=== PATIENT | female | born 1980 | race Caucasian/White ===

== ENCOUNTER 2017-08-17 10:13 | Inpatient (IN) | payer MEDICAID ==
[~2017-08-17] VITALS: Ht 172.7 cm; Wt 48.5 kg
[2017-08-17] VITALS (217 sets, daily range): BP systolic 107–125; BP diastolic 70–73; PULSE 77–79; TEMP 97.4–99.2; O2SAT 79–100
[~2017-08-17 10:13] MED LIST: ALAVERT10 M1 PO; BACTRIM DS 8001 TAB PO; CHEWABLE-V1 TAB.CHEW PO; COLACE 100100 MG/CAP PO; COLACE1 SUP RC; COLACE100 MG PO; COLD & FLU; DOCUSATE CALCI100 MG PO; FLONASE NASAL S16 GM NS; FLONASEALLERGY NS; FLUCONAZOLE; LEVOXYL0.025 MG PO; LIPITOR 10MG10 MG PO; LORATADINE10 MG PO; LORTAB 5/500 501 TAB PO; MULTIPLE VITAMI1 CT1 PO; NIACIN1000 MG PO; NORCO 325 MG-51 TAB PO; PEPCID 20MG TAB20 MG PO; REGLAN 10MG10 MG/TAB PO; SALINE MIST 4545 ML NS; SALINE NASAL SP45 ML NS; SALINE NASAL SPRAY; SENNA PLUS 50 M1 TAB PO; SENNA-GEN8.6 MG PO; SENNA8.6 MG PO; TIZANIDINE HCL4 MG PO; ULTRACET 325 MG1 TAB PO; UNABLE; VIT; VITAMIN C500 MG PO; VTAMINC250TA; ZANAFLEX 4MG TAB4 MG PO; ZANAFLEX CAPSULE4 MG PO; ZANAFLEX4 M1 PO; ZANAFLEX6 MG PO; ZOLOFT 100MG100 MG PO; ZOLOFT100 MG PO; [UNRECOGNIZED DRUG - OTHER]; [UNRECOGNIZED DRUG - OTHER]; [UNRECOGNIZED DRUG - OTHER]; [UNRECOGNIZED DRUG - OTHER]; [UNRECOGNIZED DRUG - OTHER] PO
[2017-08-17 11:25] LABS: BASO # 0.1 (0.0-0.2); BASO % 0.5 % (0.0-2.0); EOS # 0.4 (0.0-0.7); EOS % 2.3 % (0-4.0); GRAN # 13.1 (1.4-6.5); GRAN % 76.2 % (42.2-75.2); HEMATOCRIT 47.8 % (37.0-47.0); HEMOGLOBIN 14.8 g/dl (12.5-16.0); LYMPH # 2.7 (1.2-3.4); LYMPH % 15.8 % (20.0-51.0); MEAN CELL VOLUME 103 fl (80.0-100.0); MEAN CORPUSCULAR HEMOGLOBIN 32 pg (27.0-31.0); MEAN CORPUSCULAR HGB CONC 31 g/dl (33.0-37.0); MEAN PLATELET VOLUME 14.2 fl (7.4-10.4); MONO # 0.7 (0.1-0.6); MONO % 4.3 % (1.7-9.3); PLATELET COUNT 92 K/mm3 (130-400); RED BLOOD COUNT 4.65 M/mm3 (4.10-5.30); REDCELL DISTRIBUTION WIDTH-CV 15.1 % (11.5-14.5)
[2017-08-17 11:37] LABS: ALBUMIN 3.6 gm/dL (3.5-5.0); BILIRUBIN,TOTAL 0.6 mg/dL (0.0-1.0); C-REACTIVE PROTEIN 1.5 mg/dL (0.0-0.9); CALCIUM 9.3 mg/dL (8.4-10.2); CREATININE, serum 0.79 mg/dL (0.52-1.25); PHOSPHOROUS 2.7 mg/dL (2.5-4.5)
[2017-08-17 12:25] LABS: COLLECTION METHOD CATHETER
[2017-08-17 12:31] LABS: PH 5 (5-8); URINE APPEARANCE Clear; URINE BILIRUBIN Negative (NEGATIVE); URINE BLOOD Negative (NEGATIVE); URINE COLOR Amber; URINE GLUCOSE Negative (NEGATIVE); URINE KETONE Negative (NEGATIVE); URINE LEUKOCYTE ESTERASE 1+ (NEGATIVE); URINE NITRATE Positive (NEGATIVE); URINE PROTEIN(semi-quant) Negative (NEGATIVE)
[2017-08-17 12:41] LABS: MUCOUS Present /lpf; SQUAMOUS EPITHELIAL 0-2 /hpf; URINE BACTERIA Moderate /hpf; URINE RBC 0-2 /hpf
[2017-08-17] MEDS ORDERED: NYSTATIN OR100 MU/ML PO (13:08)
[2017-08-17] MEDS ORDERED: DIFLUCAN 100MG100 MG PO (13:09)
[2017-08-17] MEDS ORDERED: PRILOSEC 20MG20 MG PO (14:56)
[2017-08-17 15:32] LABS: CALCIUM 9.2 mg/dL (8.4-10.2); CREATININE, serum 0.85 mg/dL (0.52-1.25)
[2017-08-17 15:43] LABS: POTASSIUM 2.9 mmol/L (3.4-5.0)
[2017-08-17 16:03] LABS: TSH w REFLEX 0.669 uIU/mL (0.465-4.680)
[2017-08-17 21:30] LABS: CALCIUM 8.6 mg/dL (8.4-10.2); CREATININE, serum 0.7 mg/dL (0.52-1.25)
[2017-08-17 21:32] LABS: POTASSIUM 2.9 mmol/L (3.4-5.0)
[2017-08-18] VITALS (520 sets, daily range): BP systolic 86–119; BP diastolic 52–81; PULSE 64–77; TEMP 97–100.5; O2SAT 89–100
[2017-08-18 00:35] LABS: CALCIUM 8.4 mg/dL (8.4-10.2); CREATININE, serum 0.74 mg/dL (0.52-1.25)
[2017-08-18 00:38] LABS: POTASSIUM 2.8 mmol/L (3.4-5.0)
[2017-08-18 04:27] LABS: CALCIUM 8.3 mg/dL (8.4-10.2); CREATININE, serum 0.72 mg/dL (0.52-1.25); POTASSIUM 3.2 mmol/L (3.4-5.0)
[2017-08-18 08:12] LABS: BASO # 0.1 (0.0-0.2); BASO % 0.5 % (0.0-2.0); EOS # 0.5 (0.0-0.7); EOS % 3.3 % (0-4.0); GRAN # 10.5 (1.4-6.5); HEMATOCRIT 42.7 % (37.0-47.0); HEMOGLOBIN 13.1 g/dl (12.5-16.0); LYMPH # 2.8 (1.2-3.4); LYMPH % 18.7 % (20.0-51.0); MEAN CELL VOLUME 103 fl (80.0-100.0); MEAN CORPUSCULAR HEMOGLOBIN 32 pg (27.0-31.0); MEAN CORPUSCULAR HGB CONC 31 g/dl (33.0-37.0); MONO # 0.9 (0.1-0.6); PLATELET COUNT 76 K/mm3 (130-400); RED BLOOD COUNT 4.16 M/mm3 (4.10-5.30); REDCELL DISTRIBUTION WIDTH-CV 14.9 % (11.5-14.5)
[2017-08-18 08:45] LABS: CALCIUM 8.1 mg/dL (8.4-10.2); CREATININE, serum 0.7 mg/dL (0.52-1.25)
[2017-08-18 12:50] LABS: CALCIUM 7.1 mg/dL (8.4-10.2); CREATININE, serum 0.64 mg/dL (0.52-1.25)
[2017-08-18 13:00] LABS: POTASSIUM 2.7 mmol/L (3.4-5.0)
[2017-08-18 14:18] LABS: CALCIUM 7.8 mg/dL (8.4-10.2); CREATININE, serum 0.69 mg/dL (0.52-1.25)
[2017-08-18 16:23] LABS: CALCIUM 7.7 mg/dL (8.4-10.2); CREATININE, serum 0.68 mg/dL (0.52-1.25)
[2017-08-18 16:25] LABS: POTASSIUM 2.9 mmol/L (3.4-5.0)
[2017-08-18 20:10] LABS: CALCIUM 7.5 mg/dL (8.4-10.2); CREATININE, serum 0.67 mg/dL (0.52-1.25); POTASSIUM 3.6 mmol/L (3.4-5.0)
[2017-08-19] VITALS (9 sets, daily range): BP systolic 90–131; BP diastolic 51–80; PULSE 54–86; TEMP 98–98.5; O2SAT 88–95
[2017-08-19 03:54] LABS: BASO % 0.4 % (0.0-2.0); EOS # 0.3 (0.0-0.7); EOS % 2.7 % (0-4.0); GRAN # 7.3 (1.4-6.5); GRAN % 65.5 % (42.2-75.2); LYMPH # 2.8 (1.2-3.4); LYMPH % 24.9 % (20.0-51.0); MEAN CELL VOLUME 104 fl (80.0-100.0); MEAN CORPUSCULAR HGB CONC 31 g/dl (33.0-37.0); MEAN PLATELET VOLUME 14.4 fl (7.4-10.4); MONO # 0.6 (0.1-0.6); MONO % 5.7 % (1.7-9.3); PLATELET COUNT 58 K/mm3 (130-400); RED BLOOD COUNT 3.38 M/mm3 (4.10-5.30); REDCELL DISTRIBUTION WIDTH-CV 14.7 % (11.5-14.5)
[2017-08-19 04:05] LABS: CALCIUM 7.6 mg/dL (8.4-10.2); CREATININE, serum 0.68 mg/dL (0.52-1.25); POTASSIUM 3.4 mmol/L (3.4-5.0)
[2017-08-19 04:12] LABS: HEMOGLOBIN 10.8 g/dl (12.5-16.0); MEAN CORPUSCULAR HEMOGLOBIN 32 pg (27.0-31.0)
[2017-08-19 08:28] LABS: CALCIUM 7.8 mg/dL (8.4-10.2); CREATININE, serum 0.64 mg/dL (0.52-1.25); POTASSIUM 3.6 mmol/L (3.4-5.0)
[2017-08-19 12:45] LABS: CALCIUM 7.8 mg/dL (8.4-10.2); CREATININE, serum 0.66 mg/dL (0.52-1.25); POTASSIUM 3.4 mmol/L (3.4-5.0)
[2017-08-19 18:24] LABS: CALCIUM 7.2 mg/dL (8.4-10.2); CREATININE, serum 0.58 mg/dL (0.52-1.25); POTASSIUM 4.7 mmol/L (3.4-5.0)
[2017-08-19 23:39] LABS: CALCIUM 7.7 mg/dL (8.4-10.2); CREATININE, serum 0.61 mg/dL (0.52-1.25); POTASSIUM 3.4 mmol/L (3.4-5.0)
[2017-08-20 04:24] VITALS: BP 98/57; PULSE 74; TEMP 98.6
[2017-08-20 07:52] LABS: BASO % 0.2 % (0.0-2.0); EOS # 0.3 (0.0-0.7); EOS % 2.4 % (0-4.0); GRAN # 8.9 (1.4-6.5); GRAN % 70.2 % (42.2-75.2); LYMPH # 2.7 (1.2-3.4); LYMPH % 21.2 % (20.0-51.0); MEAN CELL VOLUME 103 fl (80.0-100.0); MEAN CORPUSCULAR HGB CONC 31 g/dl (33.0-37.0); MONO # 0.6 (0.1-0.6); PLATELET COUNT 62 K/mm3 (130-400); RED BLOOD COUNT 3.26 M/mm3 (4.10-5.30); REDCELL DISTRIBUTION WIDTH-CV 14.5 % (11.5-14.5)
[2017-08-20 07:56] LABS: HEMATOCRIT 33.5 % (37.0-47.0); HEMOGLOBIN 10.3 g/dl (12.5-16.0); MEAN CORPUSCULAR HEMOGLOBIN 32 pg (27.0-31.0)
[2017-08-20 08:04] LABS: CALCIUM 7.9 mg/dL (8.4-10.2); CREATININE, serum 0.57 mg/dL (0.52-1.25); POTASSIUM 3.2 mmol/L (3.4-5.0)
[2017-08-20 08:35] VITALS: BP 112/63; BP 1120/63; PULSE 82; TEMP 968.1; TEMP 98.1
[2017-08-20 12:00] VITALS: BP 114/58; PULSE 74; TEMP 98.3
[2017-08-20 13:21] LABS: CALCIUM 7.9 mg/dL (8.4-10.2); CREATININE, serum 0.59 mg/dL (0.52-1.25); POTASSIUM 3.2 mmol/L (3.4-5.0)
[2017-08-20 15:07] VITALS: BP 104/52; PULSE 71; TEMP 98.1
[2017-08-20 19:21] LABS: CALCIUM 7.6 mg/dL (8.4-10.2); CREATININE, serum 0.56 mg/dL (0.52-1.25); POTASSIUM 3.5 mmol/L (3.4-5.0)
[2017-08-20 20:42] VITALS: BP 117/64; PULSE 85; TEMP 98.3
[2017-08-20 23:21] VITALS: BP 104/43; PULSE 69; TEMP 97.3
[2017-08-21 01:45] LABS: CALCIUM 7.5 mg/dL (8.4-10.2); CREATININE, serum 0.52 mg/dL (0.52-1.25); POTASSIUM 3.9 mmol/L (3.4-5.0)
[2017-08-21 03:50] VITALS: BP 102/53; PULSE 69; TEMP 97.9
[2017-08-21 06:31] LABS: MEAN CELL VOLUME 101 fl (80.0-100.0); MEAN CORPUSCULAR HGB CONC 31 g/dl (33.0-37.0); MEAN PLATELET VOLUME 14.2 fl (7.4-10.4); RED BLOOD COUNT 3.15 M/mm3 (4.10-5.30); REDCELL DISTRIBUTION WIDTH-CV 14.1 % (11.5-14.5)
[2017-08-21 06:38] LABS: MAGNESIUM 2.2 mg/dL (1.6-2.3); PHOSPHOROUS 1.2 mg/dL (2.5-4.5)
[2017-08-21 06:44] LABS: HEMATOCRIT 31.7 % (37.0-47.0); HEMOGLOBIN 9.9 g/dl (12.5-16.0); MEAN CORPUSCULAR HEMOGLOBIN 31 pg (27.0-31.0)
[2017-08-21 06:46] LABS: PLATELET COUNT 46 K/mm3 (130-400)
[2017-08-21 08:24] LABS: BAND 8 % (0-10); EOSINOPHIL 3 % (0-4); LYMPHOCYTE 18 % (20.0-51.0); NEUTROPHILS 70 % (42.0-75.2); NUCLEATED RED BLOOD CELL 1 (0-6); PLATELET ESTIMATE DECREASED (NORMAL)
[2017-08-21 08:52] VITALS: BP 115/66; PULSE 68; TEMP 98.6
[2017-08-21 09:05] LABS: CALCIUM 7.7 mg/dL (8.4-10.2); CREATININE, serum 0.51 mg/dL (0.52-1.25)
[2017-08-21 09:53] LABS: HEPARIN INDUCED ANTIBODY Negative (Negative); HEPARIN INDUCED OD 0.268 (())
[2017-08-21 11:11] VITALS: BP 105/60; PULSE 70; TEMP 98.1
[2017-08-21 13:48] LABS: CALCIUM 7.8 mg/dL (8.4-10.2); CREATININE, serum 0.48 mg/dL (0.52-1.25); POTASSIUM 3.8 mmol/L (3.4-5.0)
[2017-08-21 15:35] LABS: FOLATE (FOLIC ACID) 14.1 ng/mL (7.0-31.4)
[2017-08-21 15:47] VITALS: BP 108/56; PULSE 76; TEMP 97.9
[2017-08-21 20:10] VITALS: BP 120/56; PULSE 71; TEMP 98.7
[2017-08-22] VITALS (8 sets, daily range): BP systolic 86–123; BP diastolic 42–68; PULSE 62–86; TEMP 98.6–99.9
[2017-08-22 05:46] LABS: MEAN CORPUSCULAR HGB CONC 33 g/dl (33.0-37.0); MEAN PLATELET VOLUME 13.1 fl (7.4-10.4); PLATELET COUNT 59 K/mm3 (130-400); RED BLOOD COUNT 3.39 M/mm3 (4.10-5.30); REDCELL DISTRIBUTION WIDTH-CV 13.8 % (11.5-14.5)
[2017-08-22 05:49] LABS: HEMATOCRIT 32.6 % (37.0-47.0); HEMOGLOBIN 10.7 g/dl (12.5-16.0); MEAN CELL VOLUME 96 fl (80.0-100.0); MEAN CORPUSCULAR HEMOGLOBIN 32 pg (27.0-31.0)
[2017-08-22 05:57] LABS: BAND 4 % (0-10); BASOPHIL 1 % (0-2); EOSINOPHIL 3 % (0-4); LYMPHOCYTE 22 % (20.0-51.0); NEUTROPHILS 64 % (42.0-75.2); NUCLEATED RED BLOOD CELL 1 (0-6)
[2017-08-22 05:58] LABS: PLATELET ESTIMATE DECREASED (NORMAL)
[2017-08-22 06:00] LABS: CALCIUM 7.9 mg/dL (8.4-10.2); CREATININE, serum 0.55 mg/dL (0.52-1.25); POTASSIUM 3.6 mmol/L (3.4-5.0)
[2017-08-22 15:41] LABS: PHOSPHOROUS 2.8 mg/dL (2.5-4.5)
[2017-08-22 16:26] LABS: INR 1.3 (0.8-3.0); PROTHROMBIN TIME 15.2 SECONDS (9.7-12.8)
[2017-08-23 00:06] VITALS: BP 113/60; PULSE 71; TEMP 98.1
[2017-08-23 04:19] VITALS: BP 102/58; PULSE 68; TEMP 98.6
[2017-08-23 06:40] LABS: MEAN CELL VOLUME 95 fl (80.0-100.0); MEAN CORPUSCULAR HGB CONC 34 g/dl (33.0-37.0); MEAN PLATELET VOLUME 13.2 fl (7.4-10.4); PLATELET COUNT 72 K/mm3 (130-400); RED BLOOD COUNT 3.38 M/mm3 (4.10-5.30); REDCELL DISTRIBUTION WIDTH-CV 14.3 % (11.5-14.5)
[2017-08-23 06:42] LABS: HEMATOCRIT 32.2 % (37.0-47.0); HEMOGLOBIN 10.8 g/dl (12.5-16.0); MEAN CORPUSCULAR HEMOGLOBIN 32 pg (27.0-31.0)
[2017-08-23 06:53] LABS: CALCIUM 8.3 mg/dL (8.4-10.2); CREATININE, serum 0.54 mg/dL (0.52-1.25); MAGNESIUM 2.1 mg/dL (1.6-2.3); PHOSPHOROUS 2.2 mg/dL (2.5-4.5); POTASSIUM 3.7 mmol/L (3.4-5.0)
[2017-08-23 08:14] VITALS: BP 102/58; PULSE 74; TEMP 97.9
[2017-08-23 09:39] LABS: BAND 5 % (0-10); EOSINOPHIL 5 % (0-4); LYMPHOCYTE 15 % (20.0-51.0); METAMYELOCYTE 1 % (0-0); NEUTROPHILS 72 % (42.0-75.2)
[2017-08-23 09:40] LABS: ANISOCYTOSIS 1+; PLATELET ESTIMATE DECREASED (NORMAL)
[2017-08-23 11:34] VITALS: BP 114/62; PULSE 45; TEMP 97.2
[2017-08-23 16:32] VITALS: BP 120/49; PULSE 50; TEMP 98.5
[2017-08-23 19:37] VITALS: BP 121/67; PULSE 87; TEMP 98.3
[2017-08-24 01:57] VITALS: BP 101/50; PULSE 74; TEMP 98.7
[2017-08-24 05:09] VITALS: BP 115/65; PULSE 81; TEMP 98
[2017-08-24 06:46] LABS: MEAN CELL VOLUME 95 fl (80.0-100.0); MEAN CORPUSCULAR HGB CONC 33 g/dl (33.0-37.0); MEAN PLATELET VOLUME 12.3 fl (7.4-10.4); PLATELET COUNT 100 K/mm3 (130-400); REDCELL DISTRIBUTION WIDTH-CV 14.8 % (11.5-14.5)
[2017-08-24 06:53] LABS: HEMATOCRIT 33.2 % (37.0-47.0); HEMOGLOBIN 11.1 g/dl (12.5-16.0); MEAN CORPUSCULAR HEMOGLOBIN 32 pg (27.0-31.0)
[2017-08-24 07:04] LABS: CALCIUM 8.2 mg/dL (8.4-10.2); CREATININE, serum 0.48 mg/dL (0.52-1.25); MAGNESIUM 1.8 mg/dL (1.6-2.3); PHOSPHOROUS 3.3 mg/dL (2.5-4.5); POTASSIUM 3.8 mmol/L (3.4-5.0)
[2017-08-24 07:14] LABS: BAND 1 % (0-10); EOSINOPHIL 1 % (0-4); LYMPHOCYTE 3 % (20.0-51.0); NEUTROPHILS 92 % (42.0-75.2); NUCLEATED RED BLOOD CELL 1 (0-6); PLATELET ESTIMATE DECREASED (NORMAL)
[2017-08-24 07:15] LABS: ANISOCYTOSIS 1+; POLYCHROMASIA 1+
[2017-08-24 07:29] VITALS: BP 126/78; PULSE 78; TEMP 98.2
[2017-08-24 11:37] VITALS: BP 114/65; PULSE 80; TEMP 98.1
[2017-08-24 15:19] VITALS: BP 144/81; PULSE 77; TEMP 98.4
[2017-08-24 19:45] VITALS: BP 116/57; PULSE 81; TEMP 97.4
[2017-08-25 00:04] VITALS: BP 103/62; PULSE 86; TEMP 98
[2017-08-25 04:32] VITALS: BP 99/47; PULSE 71; TEMP 97.2
[2017-08-25 06:15] LABS: MEAN CELL VOLUME 93 fl (80.0-100.0); MEAN CORPUSCULAR HGB CONC 34 g/dl (33.0-37.0); MEAN PLATELET VOLUME 11.8 fl (7.4-10.4); PLATELET COUNT 129 K/mm3 (130-400); RED BLOOD COUNT 3.72 M/mm3 (4.10-5.30); REDCELL DISTRIBUTION WIDTH-CV 15.2 % (11.5-14.5)
[2017-08-25 06:28] LABS: CALCIUM 8.6 mg/dL (8.4-10.2); CREATININE, serum 0.53 mg/dL (0.52-1.25); POTASSIUM 3.6 mmol/L (3.4-5.0)
[2017-08-25 06:33] LABS: PHOSPHOROUS 2.7 mg/dL (2.5-4.5)
[2017-08-25 06:36] LABS: HEMATOCRIT 34.6 % (37.0-47.0); HEMOGLOBIN 11.8 g/dl (12.5-16.0); MEAN CORPUSCULAR HEMOGLOBIN 32 pg (27.0-31.0)
[2017-08-25 07:35] LABS: BAND 12 % (0-10); BASOPHIL 1 % (0-2); LYMPHOCYTE 18 % (20.0-51.0); NEUTROPHILS 67 % (42.0-75.2); PLATELET ESTIMATE NORMAL (NORMAL)
[2017-08-25 07:40] VITALS: BP 102/59; PULSE 84; TEMP 98.6
[2017-08-25 11:52] VITALS: BP 105/64; PULSE 92; TEMP 98.8
[2017-08-25 17:21] VITALS: BP 98/51; PULSE 77; TEMP 98.1
[2017-08-25 19:19] VITALS: BP 110/55; PULSE 79; TEMP 98.1
[2017-08-26 00:03] VITALS: BP 89/57; PULSE 81; TEMP 97.8
[2017-08-26 04:02] VITALS: BP 96/51; PULSE 73; TEMP 98.8
[2017-08-26 07:01] LABS: BILIRUBIN,TOTAL 0.4 mg/dL (0.0-1.0); CALCIUM 8.6 mg/dL (8.4-10.2); CREATININE, serum 0.5 mg/dL (0.52-1.25); MAGNESIUM 2.1 mg/dL (1.6-2.3); PHOSPHOROUS 2.7 mg/dL (2.5-4.5); POTASSIUM 3.6 mmol/L (3.4-5.0); TOTAL PROTEIN 6.1 gm/dL (6.4-8.2)
[2017-08-26 07:08] LABS: PRE ALBUMIN 14.9 mg/dL (17.6-36.0)
[2017-08-26 07:27] VITALS: BP 117/69; PULSE 75; TEMP 98.9
[2017-08-26 12:03] VITALS: BP 84/49; PULSE 86; TEMP 99.1
[2017-08-26 16:04] VITALS: BP 87/67; PULSE 93; TEMP 98.8
[2017-08-26 20:28] VITALS: BP 97/56; PULSE 95; TEMP 98.4
[2017-08-27 00:23] VITALS: BP 99/56; PULSE 82; TEMP 98.3
[2017-08-27 04:39] VITALS: BP 113/65; PULSE 83; TEMP 97.9
[2017-08-27 07:40] VITALS: BP 117/63; PULSE 83; TEMP 97.9
[2017-08-27 10:41] LABS: BILIRUBIN,TOTAL 0.3 mg/dL (0.0-1.0); CALCIUM 8.3 mg/dL (8.4-10.2); CREATININE, serum 0.43 mg/dL (0.52-1.25); POTASSIUM 3.4 mmol/L (3.4-5.0); TOTAL PROTEIN 6.2 gm/dL (6.4-8.2)
[2017-08-27 11:12] VITALS: BP 107/52; PULSE 101; TEMP 98.8
[2017-08-27 15:24] VITALS: BP 98/52; PULSE 90; TEMP 98.8
[2017-08-27 19:24] VITALS: BP 92/53; PULSE 84; TEMP 99.1
[2017-08-28 01:35] VITALS: BP 86/50; PULSE 76; TEMP 99
[2017-08-28 01:58] VITALS: BP 92/47; PULSE 78
[2017-08-28 04:58] VITALS: BP 90/61; PULSE 83; TEMP 98.7
[2017-08-28 07:03] LABS: BASO % 0.4 % (0.0-2.0); EOS # 0.3 (0.0-0.7); EOS % 4.3 % (0-4.0); GRAN # 4.6 (1.4-6.5); GRAN % 62.1 % (42.2-75.2); LYMPH # 1.9 (1.2-3.4); LYMPH % 25.5 % (20.0-51.0); MEAN CELL VOLUME 97 fl (80.0-100.0); MEAN CORPUSCULAR HGB CONC 33 g/dl (33.0-37.0); MEAN PLATELET VOLUME 10.4 fl (7.4-10.4); MONO # 0.5 (0.1-0.6); MONO % 6.9 % (1.7-9.3); RED BLOOD COUNT 3.25 M/mm3 (4.10-5.30); REDCELL DISTRIBUTION WIDTH-CV 15.9 % (11.5-14.5)
[2017-08-28 07:06] LABS: HEMATOCRIT 31.4 % (37.0-47.0); HEMOGLOBIN 10.4 g/dl (12.5-16.0); MEAN CORPUSCULAR HEMOGLOBIN 32 pg (27.0-31.0); PLATELET COUNT 234 K/mm3 (130-400)
[2017-08-28 07:15] LABS: ALBUMIN 2.7 gm/dL (3.5-5.0); BILIRUBIN,TOTAL 0.2 mg/dL (0.0-1.0); CALCIUM 8.1 mg/dL (8.4-10.2); CREATININE, serum 0.41 mg/dL (0.52-1.25); MAGNESIUM 2.1 mg/dL (1.6-2.3); PHOSPHOROUS 2.4 mg/dL (2.5-4.5); POTASSIUM 3.9 mmol/L (3.4-5.0); TOTAL PROTEIN 5.8 gm/dL (6.4-8.2)
[2017-08-28 07:21] LABS: PRE ALBUMIN 18.3 mg/dL (17.6-36.0)
[2017-08-28 08:35] VITALS: BP 105/51; PULSE 86; TEMP 98.2
[2017-08-28] MEDS ORDERED: DOXYCYCLINE 10100 MG PO (08:59)
[2017-08-28] MEDS ORDERED: TYLENOL 325MG325 MG PO (09:02)
[2017-08-28] MEDS ORDERED: ZADITOR 5 ML5 ML OP (09:03)
== END 2017-08-28 13:00 | disposition home or self-care (01) | DRG 640 ==
LOC: COL.ER 10:13 → MEDICAL 12:44 → ICU 12:44 → MEDICAL 08-19 14:26
PROVIDERS: Emergency Medicine; Family Medicine; Internal Medicine; Internal Medicine Gastroenterology; Nurse Practitioner Family; Physician Assistant
PROC: 0DH64UZ Insertion of Feeding Device into Stomach, Percutaneous Endoscopic Approach (ICD-10-PCS; principal; 2017-08-23 16:00)
DX: E87.0 Hyperosmolality and hypernatremia (principal); L89.613 Pressure ulcer of right heel, stage 3; G93.1 Anoxic brain damage, not elsewhere classified; N39.0 Urinary tract infection, site not specified; B37.0 Candidal stomatitis; E44.0 Moderate protein-calorie malnutrition; Z68.1 Body mass index [BMI] 19.9 or less, adult; L02.611 Cutaneous abscess of right foot; E87.6 Hypokalemia; B30.9 Viral conjunctivitis, unspecified; D69.6 Thrombocytopenia, unspecified; F50.9 Eating disorder, unspecified; F45.22 Body dysmorphic disorder; F32.9 Major depressive disorder, single episode, unspecified; B96.20 Unspecified Escherichia coli [E. coli] as the cause of diseases classified elsewhere; L27.0 Generalized skin eruption due to drugs and medicaments taken internally; T37.8X5A Adverse effect of other specified systemic anti-infectives and antiparasitics, initial encounter; B95.62 Methicillin resistant Staphylococcus aureus infection as the cause of diseases classified elsewhere; L89.622 Pressure ulcer of left heel, stage 2
CPT/HCPCS: 99223-AI; 99231-AI; 99232-AI; 99233-AI; 99239; C1751; J0690; J0696; J1644; J1650; J2270; J2704; J3480; J7030; J7040; J7050; J7060; J7070

== ENCOUNTER 2017-12-11 14:45 | Outpatient (RCR) | payer MEDICARE, MEDICAID ==
[~2017-12-11 14:45] MED LIST changes: +DIFLUCAN 100MG100 MG PO; +DOXYCYCLINE 10100 MG PO; +NYSTATIN OR100 MU/ML PO; +PRILOSEC 20MG20 MG PO; +TYLENOL 325MG325 MG PO; +ZADITOR 5 ML5 ML OP
== END 2017-12-18 | disposition home or self-care (01) ==
LOC: MKS.ESL.PT
DX: R53.1 Weakness (principal); E46 Unspecified protein-calorie malnutrition
CPT/HCPCS: G8990-GP; G8991-GP; G8996-GN; G8997-GN; G8998-GN

== ENCOUNTER 2018-01-08 13:45 | Outpatient (RCR) | payer MEDICARE, MEDICAID | END 2018-01-11 11:47 | disposition home or self-care (01) | LOC: MKS.ESL.PT 13:45 | DX: R53.1 Weakness (principal); E46 Unspecified protein-calorie malnutrition | CPT/HCPCS: G8991-GP; G8992-GP ==

== ENCOUNTER → 2019-02-12 | Outpatient (CLI) | payer MEDICARE, MEDICAID | LOC: COL.RAD 13:18 | DX: M25.511 Pain in right shoulder (principal) ==

== ENCOUNTER 2019-04-16 13:00 | Outpatient (RCR) | payer MEDICARE, MEDICAID | END 2019-06-06 | disposition home or self-care (01) | LOC: WSOT | DX: M25.511 Pain in right shoulder (principal); M79.641 Pain in right hand ==

== ENCOUNTER 2021-11-12 12:56 | Outpatient (RCR) | payer MEDICARE, MEDICAID | END 2021-11-23 | disposition home or self-care (01) | LOC: MKS.ESL.OT | DX: M24.50 Contracture, unspecified joint (principal) ==

== ENCOUNTER 2021-12-03 15:32 | Outpatient (RCR) | payer MEDICARE, MEDICAID | END 2021-12-23 | disposition still patient (30) | LOC: MKS.ESL.OT | DX: M24.50 Contracture, unspecified joint (principal) ==

== ENCOUNTER 2021-12-08 10:30 | Outpatient (RCR) | payer MEDICARE, MEDICAID | END 2021-12-23 | disposition still patient (30) | LOC: MKS.ESL.PT | DX: M24.50 Contracture, unspecified joint (principal) ==

== ENCOUNTER 2022-01-14 14:15 | Outpatient (RCR) | payer MEDICARE, MEDICAID | END 2022-01-23 | disposition home or self-care (01) | LOC: MKS.ESL.PT | DX: M24.50 Contracture, unspecified joint (principal) ==